=== PATIENT | female | born 1970 | race Caucasian/White ===

== ENCOUNTER → 2018-06-05 | Outpatient (CLI) | payer OTHER ==
--- NOTE | 2018-06-05 10:14 | KCIC ---
EXAM: MRI left shoulder DATE: 06/05/2018 8:00 AM COMPARISON: None INDICATION: Left shoulder pain. Decreased range of motion. TECHNIQUE: Multiplanar, multisequence MRI of the left shoulder was performed without contrast. FINDINGS: Mild AC joint degenerative changes are seen. Associated edema is likely degenerative. No evidence of fracture. Mild downsloping distal acromion. No os acromiale. Type I acromion. Subacromial subdeltoid bursal distention likely bursitis. No glenohumeral joint effusion. Mild thickening and increased signal within the supraspinatus tendon distally likely tendinosis. Shallow bursal sided tear of the distal supraspinatus tendon is seen involving approximately 10% tendon thickness. Thickening of the intra-articular long head biceps tendon likely severe tendinosis. Extra articular long head biceps tendon is seen within the bicipital groove. Evaluation of the labrum is limited on this nonarthrographic study. Mild diminutive appearance of the posterior labrum, possibly physiologic for this patient although may also be seen with tear. No definite full-thickness cartilage tear is identified. No evidence for fracture or AVN. IMPRESSION: 1. Shallow bursal sided tear within the supraspinatus tendon distally. 2. Severe tendinosis intra-articular long head biceps tendon. 3. Subacromial subdeltoid bursal distention likely bursitis. 4. Mild diminutive appearance of the posterior labrum, possibly physiologic for this patient although may also be seen with tear 5. AC joint degenerative changes with edema. Electronically signed by: Juanpablo Rosas MD (06/05/2018 10:09 AM) [facility]
== END | disposition home or self-care (01) ==
LOC: KCIC MRI 08:03
PROVIDERS: ATTEND Nurse Practitioner Adult Health
DX: M75.102 Unspecified rotator cuff tear or rupture of left shoulder, not specified as traumatic (principal); M19.012 Primary osteoarthritis, left shoulder; R60.0 Localized edema
CPT/HCPCS: 73221

== ENCOUNTER → 2018-08-10 | Day surgery (SDC) | payer OTHER ==
[~2018-08-10] VITALS: Ht 162.6 cm; Wt 104.3 kg
[~2018-08-10] MED LIST: ALPR0.25 PO; BUSP15TA PO; CLINDAMYCIN 900MG PREMIX 50 ML IV PRN; DEXAMETHASONE SOD PHOS 20 MG/5 ML VIAL. ONE; DIPH25CA58 PO; EPINEPHrine VIAL 30 MG/30 ML VIAL ONE; EPIPEN 2-P0.3 MG/0.3 IJ; FAMOTIDINE 20 MG/2 ML VIAL ONE; GABA-585 PO; GLYCOPYRROLATE 1 MG/5 ML VIAL. ONE; HYDROmorphone 2 MG/ML VIAL IV PRN; IV RINGERS,LACTATED 1000ML 1,000 ML IV SCH; LEXAPRO20 MG PO; LIDOCAINE 1% PF 2 ML VIAL. ID PRN; LIDOCAINE 2% PF 5 ML VIAL. ONE; LOSA1TAB19 PO; LOSA1TAB22 PO; MIDAZOLAM HCL/PF 2 MG/2 ML VIAL. ONE; MORPHINE SULFATE 2 MG/ML VIAL. IV PRN; NAPR-514 PO; NEOSTIGMINE METHYLSULFATE 5 MG/5 ML SYRINGE. ONE; ONDANSETRON PF 4 MG/2 ML VIAL. IV PRN; ONDANSETRON PF 4 MG/2 ML VIAL. ONE; OXYC1TAB19 PO; PROAIR RESPICL90 MCG IH; PROCHLORPERAZINE 10 MG/2 ML VIAL. IV PRN; PROPOFOL 20 ML IV ONE; PROTONIX PO; ROCURONIUM 50 MG/5 ML VIAL. ONE; ROPIVacaine 0.5% PF 20 ML VIAL. ONE; TRAM50TA PO; TRAZ-86 PO; fentaNYL PF VIAL 100 MCG/2 ML VIAL IV PRN; fentaNYL PF VIAL 100 MCG/2 ML VIAL ONE; oxyCODONE/APAP 7.5/325 1 TAB TABLET PO ONE
--- NOTE | 2018-08-10 06:58 | DISCH ---
DISCHARGE INSTRUCTIONS Condition on Discharge Condition on Discharge: Stable Activity After Discharge Activity Instructions for Disc: Other ROM activity ( sling for comfort may remove for active passive range of motion strengthening physical therapy and other activities), Other, see below (passive and active stretching advancing to strengthening as tolerated) Exercise Instruction after Dis: Exercise per therapy Weight Bearing Status after Di: Non weight bearing (fine motor use of hand at side only with home and work activities) Diet after Discharge Diet after Discharge: Regular Wound Incision Care Wound/Incision Care: Change dressing (remove dressing in 2 days may then shower , no soaking until sutures removed) Community/Resources/Services Services at Discharge: PT EVALUATE & TREAT (aggressive passive and active range of motion advancing the strengthening as tolerated no other restrictions) Contacting the after DC Call your doctor for: Concerns you may have Follow-Up Follow up with: Dr. Ko 10 days GOGO KO MD Aug 10, 2018 06:58
[2018-08-10] MEDS: fentaNYL PF VIAL 100 MCG/2 ML VIAL IV PRN ×3 (09:24→09:53)
--- NOTE | 2018-08-10 09:58 | PDOC4 ---
Operative Note Operative Note Date of surgery: 08/10/2018 Preoperative diagnosis: Rotator cuff tear possible superior labral tear, acromioclavicular joint pain post contusion Postoperative diagnosis: Rotator cuff had partial thickness bursal sided fraying superior labrum was intact she had some adhesive capsulitis and acromioclavicular joint degenerative change Surgeon: Maikel Assist: Demacrus Anesthesia: Gen. plus scalene block Estimated blood loss 10 mL Complications: None Operative indications: Alison is a 48-year-old female that injured her right shoulder at work and had pain and weakness MRI was suspicious for a rotator cuff tear as well as superior labral abnormality. She was also clinically very tender over the acromioclavicular joint I had gone over with her the possibility of rotator cuff repair appropriate treatment of the superior labral injury and likely decompression distal clavicle's excision. I went through risks benefits postoperative course of the procedure with her the typical recovery and restrictions and rationale all her questions were answered she wishes to proceed with surgical evaluation and treatment. Operative text: Patient was identified procedure verified patient placed in the supine position on the operating table. After adequate amounts of general anesthesia were administered the left upper extremity was prepped and draped in standard sterile fashion. Timeout was performed patient procedure identified and verified. The shoulder was first examined under anesthesia and found to have some limitation of terminal elevation as well as abduction and external rotation. This was restored with manipulation to full range of motion and no instability was noted. The arm was then placed in the arthroscopic arm gibbs with a total of 15 pounds of traction a posterior portal was established anterior portal established using spinal needle localization and the shoulder joint was systematically examined. She did have some bleeding from the capsular release with manipulation the superior labrum appeared intact biceps tendon was just irritated but found to be free from any subluxation or significant fraying. Rotator cuff insertion was intact to the joint surface labrum was intact with only mild fraying not requiring any debridement glenohumeral joint surfaces otherwise noted be intact and she had a normal bare area of the humerus. Subacromial space was then entered bursectomy was performed to allow visualization and she was noted to have significant bursal sided fraying which was debrided back to stable tissue but did not require repair. Coracoacromial ligament was taken down and anterior acromial spur was converted to a type I acromion using cutting block technique. The distal clavicle was noted to be narrowed and arthritic and was excised 1 cm to allow a joint space preserving the overlying joint capsule for stability. Bony fragments were evacuated with arthroscopic shaver and the rotator cuff insertion examined in all degrees of internal/external rotation and no repair necessary. Joint was drained of arthroscopic fluid portals closed with nylon suture sterile dressings were applied she was returned to recovery room in stable condition having tolerated procedure well. Demarcus kennedy was present for the procedure and assisted in the prepping draping skin closure GOGO ÁLVAREZ MD Aug 10, 2018 09:58
[2018-08-10 10:30] VITALS: BP 161/89
== END | disposition home or self-care (01) ==
LOC: SURG 05:49
PROVIDERS: ATTEND Orthopaedic Surgery
DX: S46.012A Strain of muscle(s) and tendon(s) of the rotator cuff of left shoulder, initial encounter (principal); M75.02 Adhesive capsulitis of left shoulder; M19.012 Primary osteoarthritis, left shoulder; Z82.49 Family history of ischemic heart disease and other diseases of the circulatory system; Z79.899 Other long term (current) drug therapy; Z88.0 Allergy status to penicillin; Z88.2 Allergy status to sulfonamides; Z88.1 Allergy status to other antibiotic agents; Z88.8 Allergy status to other drugs, medicaments and biological substances; Z91.041 Radiographic dye allergy status; Z91.040 Latex allergy status; X58.XXXA Exposure to other specified factors, initial encounter; Y93.89 Activity, other specified; Y92.89 Other specified places as the place of occurrence of the external cause; Y99.8 Other external cause status
CPT/HCPCS: 29823; 29824; A7015; J0171; J1100; J2001; J2250; J2405; J2704; J2710; J2795; J3010; J3490; J7120

== ENCOUNTER 2018-10-09 07:45 | Day surgery (SDC) | payer OTHER ==
[~2018-10-09 07:45] MED LIST changes: -CLINDAMYCIN 900MG PREMIX 50 ML IV PRN; -DEXAMETHASONE SOD PHOS 20 MG/5 ML VIAL. ONE; -EPINEPHrine VIAL 30 MG/30 ML VIAL ONE; -FAMOTIDINE 20 MG/2 ML VIAL ONE; -GLYCOPYRROLATE 1 MG/5 ML VIAL. ONE; -LIDOCAINE 2% PF 5 ML VIAL. ONE; -MIDAZOLAM HCL/PF 2 MG/2 ML VIAL. ONE; -MORPHINE SULFATE 2 MG/ML VIAL. IV PRN; -NEOSTIGMINE METHYLSULFATE 5 MG/5 ML SYRINGE. ONE; -ONDANSETRON PF 4 MG/2 ML VIAL. ONE; -PROPOFOL 20 ML IV ONE; -ROCURONIUM 50 MG/5 ML VIAL. ONE; -ROPIVacaine 0.5% PF 20 ML VIAL. ONE; -fentaNYL PF VIAL 100 MCG/2 ML VIAL ONE; -oxyCODONE/APAP 7.5/325 1 TAB TABLET PO ONE
[2018-10-09] MEDS ORDERED: PROPOFOL 20 ML IV ONE (08:33)
[2018-10-09] MEDS ORDERED: ROPIVacaine 0.5% PF 20 ML VIAL. ONE ×2 (08:50→09:00)
[2018-10-09] MEDS ORDERED: MIDAZOLAM HCL/PF 2 MG/2 ML VIAL. ONE ×2 (08:50→09:00)
[2018-10-09] MEDS ORDERED: BUPIVACAINE MPF 0.5% 30 ML VIAL. ONE ×2 (09:00→09:48)
[2018-10-09] MEDS ORDERED: methylPREDNISolone ACETATE 80 MG/ML VIAL. ONE ×2 (09:00→09:47)
[2018-10-09] MEDS ORDERED: PROPOFOL 10 MG/ML (20ML) VIAL. IV ONE ×2 (09:00→12:00)
--- NOTE | 2018-10-09 11:01 | DISCH ---
DISCHARGE INSTRUCTIONS Condition on Discharge Condition on Discharge: Stable Activity After Discharge Activity Instructions for Disc: No restrictions (no sling or limitations wh atsoever), Other, see below (mediate aggressive range of motion with physical therapy) Diet after Discharge Diet after Discharge: Regular Wound Incision Care Wound/Incision Care: Ice to area for comfort Community/Resources/Services Services at Discharge: PT EVALUATE & TREAT (start physical therapy as soon as possible no later than tomorrow) GOGO ÁLVAREZ MD Oct 09, 2018 11:01
--- NOTE | 2018-10-09 11:06 | PDOC4 ---
Operative Note Operative Note Date of surgery: 10/09/2018 Preoperative diagnosis: Adhesive capsulitis left shoulder Postoperative diagnosis: Same Operative procedure: Manipulation left shoulder under anesthesia and injection glenohumeral joint Surgeon: Maikel Anesthesia with deep sedation Complications: None Operative indications: Patient underwent previous shoulder surgery and has been regressing in her range of motion despite attempts of physical therapy and home stretching program strength is getting better but motion is decreasing as is her pain. We had discussed adhesive capsulitis and the natural course of that entity as well as the possibility of it running its course, the ineffectiveness of current stretching and physical therapy regimen and the possibility of manipulation under anesthesia. She wishes to proceed with manipulation and inje ction and understands that she needs to get back into physical therapy right away to keep the motion that has already been regained. Operative text: Patient was identified procedure verified patient placed in the supine position on the operating table. After adequate amounts of deep sedation provided by anesthesia the shoulder was examined under anesthesia and found to lack terminal elevation and external rotation and abduction of about 65 each, internal rotation was lacking about 20. After manipulation palpable and audible release of tissue was noted and full range of motion was regained without instability and under sterile conditions 3 mL of half percent plain Marcaine and 1 mL 80 mg/mm Depo-Medrol were injected into the glenohumeral joint from an ante rior approach. She was recovered in stable condition and instructed in immediate physical therapy with aggressive range of motion and no restrictions whatsoever GOGO ÁLVAREZ MD Oct 09, 2018 11:06
[2018-10-09] MEDS ORDERED: fentaNYL PF VIAL 100 MCG/2 ML VIAL ONE (11:07)
[2018-10-09] MEDS: fentaNYL PF VIAL 100 MCG/2 ML VIAL IV PRN ×2 (11:11→11:23)
[2018-10-09] MEDS ORDERED: MORPHINE SULFATE 2 MG/ML VIAL. ONE (11:41)
[2018-10-09] MEDS: MORPHINE SULFATE 2 MG/ML VIAL. IV PRN ×2 (11:45→11:56)
[2018-10-09] MEDS ORDERED: oxyCODONE/APAP 7.5/325 1 TAB TABLET PO ONE (12:00)
[2018-10-09] MEDS ORDERED: oxyCODONE/APAP 7.5/325 1 TAB TABLET ONE (12:03)
[2018-10-09 12:10] VITALS: BP 114/64
[2018-10-09] MEDS ORDERED: HYDROmorphone 2 MG/ML VIAL ONE (12:24)
== END 2018-10-09 12:42 | disposition home or self-care (01) ==
LOC: SURG 07:45
PROVIDERS: ATTEND Orthopaedic Surgery
DX: M75.02 Adhesive capsulitis of left shoulder (principal); Z98.890 Other specified postprocedural states; Z88.0 Allergy status to penicillin; Z88.8 Allergy status to other drugs, medicaments and biological substances; Z88.1 Allergy status to other antibiotic agents; Z91.041 Radiographic dye allergy status; Z91.040 Latex allergy status
CPT/HCPCS: 20610; 23700; J1040; J1170; J2250; J2270; J2704; J2795; J3010; J3490

== ENCOUNTER → 2020-09-15 | Outpatient (CLI) | payer OTHER ==
[~2020-09-15] MED LIST changes: +FLUO40CA2 PO; +FLUT9.9S NS; +HYDR-2765 PO; +HYDR50TA9 PO; -HYDROmorphone 2 MG/ML VIAL IV PRN; -IV RINGERS,LACTATED 1000ML 1,000 ML IV SCH; +LEVO50TA5 PO; -LIDOCAINE 1% PF 2 ML VIAL. ID PRN; +LOSA100T14 PO; -ONDANSETRON PF 4 MG/2 ML VIAL. IV PRN; -PROCHLORPERAZINE 10 MG/2 ML VIAL. IV PRN; +SOLI10TA2 PO; +TRAZ-123 PO; -TRAZ-86 PO; -fentaNYL PF VIAL 100 MCG/2 ML VIAL IV PRN
== END ==
LOC: LAB 10:20
PROVIDERS: ATTEND Orthopaedic Surgery
DX: Z01.812 Encounter for preprocedural laboratory examination (principal); Z20.822 Contact with and (suspected) exposure to COVID-19
CPT/HCPCS: U0003; U0005

== ENCOUNTER 2020-09-18 12:13 | Day surgery (SDC) | payer OTHER ==
[~2020-09-18] VITALS: Ht 162.6 cm; Wt 103.0 kg
[~2020-09-18 12:13] MED LIST changes: +CEFAZOLIN SODIUM IV ONE; +DEXTROSE 5% IV ONE; -HYDR-2765 PO; +HYDROmorphone 2 MG/ML VIAL IVP PRN; +IV RINGERS,LACTATED 1000ML 1,000 ML IV SCH; +fentaNYL PF VIAL 100 MCG/2 ML VIAL IVP PRN
[2020-09-18 12:33] VITALS: BP 150/67
[2020-09-18] MEDS ORDERED: ONDANSETRON PF 4 MG/2 ML VIAL. ONE (16:14)
[2020-09-18] MEDS ORDERED: LIDOCAINE 2% PF 5 ML VIAL. ONE (16:14)
[2020-09-18] MEDS ORDERED: PROPOFOL 10 MG/ML (20ML) VIAL. IV ONE ×2 (16:14→17:10)
[2020-09-18] MEDS ORDERED: DEXAMETHASONE SOD PHOS 4 MG/ML VIAL ONE (16:14)
[2020-09-18] MEDS ORDERED: fentaNYL PF VIAL 100 MCG/2 ML VIAL ONE ×2 (16:39→17:03)
[2020-09-18] MEDS ORDERED: HYDR-2765 PO (16:47)
--- NOTE | 2020-09-18 16:47 | DISCH ---
DISCHARGE INSTRUCTIONS Condition on Discharge Condition on Discharge: Stable Activity After Discharge Activity Instructions for Disc: Progressive ambulation Diet after Discharge Diet after Discharge: Regular Wound Incision Care Wound/Incision Care: Ice to area for comfort, Change dressing (Remove dressing in 2 days may then shower no soaking until sutures removed) Contacting the DRJennifer after DC Call your doctor for: Concerns you may have Follow-Up Follow up with: Dr. Ko or [place] 10 days GOGO KO MD September 18, 2020 16:47
[2020-09-18] MEDS ORDERED: BUPIVACAINE-EPI 0.5%-1:200000 MPF 30 ML VIAL. ONE (17:11)
[2020-09-18] MEDS ORDERED: SEVOFLURANE 31 TO 60 MINUTES. IH ONE (17:14)
--- NOTE | 2020-09-18 17:34 | PDOC4 ---
Operative Note Operative Note Date of surgery: 09/18/2020 Preoperative diagnosis: Left knee medial and lateral meniscus tears Postoperative diagnosis: Same Operative procedure: Left knee arthroscopy partial medial and lateral meniscectomy Surgeon: Maikel Assist: Martin kennedy Anesthesia: General Estimated blood loss: 5 cc Complications: None Operative indications: Please see my preoperative clinic note for detailed operative indications and note that we reviewed preoperatively the rationale for removal of the damaged portions of the meniscus which is unstable causing her mechanical symptoms. I went over that I cannot undo any degenerative type symptoms and those would have to be treated symptomatically in an ongoing fashion. We talked about the possibility of infection nerve or blood vessel damage continued pain medical or other anesthetic complications among others and she agrees to proceed with surgical evaluation and treatment. Operative text: Patient was identified procedure verified patient placed in supine position on the operating table. After adequate amounts of general anesthesia were administered the left lower extremity was prepped and draped in standard sterile fashion with a thigh tourniquet. After timeout was performed patient procedure identified and verified the left lower extremity was exsanguinated by Esmarch bandage tourniquet inflated to 350 mmHg a lateral portal was established medial portal established using spinal needle localizati on and the knee joint was systematically examined. She was found to have a large displaceable parrot-beak tear of the medial meniscus involving the junction of the body and posterior horn. She had additional fraying and instability of the posterior horn extending toward the root all of which was trimmed back to stable tissue and radius appropriately using the opposite portal to avoid ongoing stress concentration. ACL was probed and found to be intact as was the patellofemoral articulation. Lateral meniscus had a radial tear in the body area and significant free edge fraying all of which was trimmed back to stable tissue with the arthroscopic punch and shaver involving approximately the inner 30% of the lateral meniscus and approximately 60% of the medial meniscus tissue at its most severe at the base of the previous parrot-beak tear area. Any loose cartilage fragments were collected with the arthroscopic shaver. Joint was drained of arthroscopic fluid portals and fat pad area were injected with half percent Marcaine with epinephrine portals closed with nylon suture sterile dressings were applied toes were noted to be warm pink following deflation of tourniquet patient was returned to recovery room in stable condition having tolerated procedure well. Martin kennedy was present for the procedure assisted in patient positioning prepping draping retraction closure and dressings GOGO ÁLVAREZ MD September 18, 2020 17:34
[2020-09-18] MEDS ORDERED: PROCHLORPERAZINE 10 MG/2 ML VIAL. ONE (17:56)
[2020-09-18] MEDS ORDERED: MORPHINE SULFATE 2 MG/ML VIAL. ONE (17:57)
[2020-09-18] MEDS: PROCHLORPERAZINE 10 MG/2 ML VIAL. IVP PRN ×2 (18:02→18:11)
[2020-09-18] MEDS: MORPHINE SULFATE 2 MG/ML VIAL. IVP PRN ×2 (18:03→18:13)
[2020-09-18] MEDS ORDERED: HYDROcodone/APAP 7.5/325MG 1 TAB TABLET PO ONE (18:30)
[2020-09-18 18:56] VITALS: BP 152/70
== END 2020-09-18 19:20 | disposition home or self-care (01) ==
LOC: SURG 12:13
PROVIDERS: ATTEND Orthopaedic Surgery
DX: S83.242A Other tear of medial meniscus, current injury, left knee, initial encounter (principal); S83.282A Other tear of lateral meniscus, current injury, left knee, initial encounter; I10 Essential (primary) hypertension; E78.00 Pure hypercholesterolemia, unspecified; M19.90 Unspecified osteoarthritis, unspecified site; J45.909 Unspecified asthma, uncomplicated; E66.9 Obesity, unspecified; K21.9 Gastro-esophageal reflux disease without esophagitis; G47.30 Sleep apnea, unspecified; E03.9 Hypothyroidism, unspecified; F41.9 Anxiety disorder, unspecified; F32.9 Major depressive disorder, single episode, unspecified; Z87.440 Personal history of urinary (tract) infections; Z90.710 Acquired absence of both cervix and uterus; Z98.890 Other specified postprocedural states; Z79.899 Other long term (current) drug therapy; Z88.0 Allergy status to penicillin; Z88.1 Allergy status to other antibiotic agents; Z88.2 Allergy status to sulfonamides; Z88.5 Allergy status to narcotic agent; Z91.040 Latex allergy status; Z91.041 Radiographic dye allergy status; Z88.8 Allergy status to other drugs, medicaments and biological substances; X58.XXXA Exposure to other specified factors, initial encounter; Y93.89 Activity, other specified; Y92.89 Other specified places as the place of occurrence of the external cause; Y99.8 Other external cause status
CPT/HCPCS: 29880; A4930; J0690; J0780; J1100; J2270; J2405; J2704; J3010; J7060

== ENCOUNTER 2020-11-05 10:07 | Day surgery (SDC) | payer OTHER ==
[~2020-11-05] VITALS: Ht 162.6 cm; Wt 100.0 kg
[~2020-11-05 10:07] MED LIST changes: +ALPR0.254 PO; -CEFAZOLIN SODIUM IV ONE; -DEXTROSE 5% IV ONE; +HYDR-2765 PO; -HYDROmorphone 2 MG/ML VIAL IVP PRN; +PANT40TA77 PO; +PROCHLORPERAZINE 10 MG/2 ML VIAL. IVP PRN; +TRIA10.8 NS
[2020-11-05 10:37] VITALS: BP 128/69
[2020-11-05] MEDS ORDERED: LIDOCAINE 1% Multi-Dose 20 ML VIAL. ONE (10:38)
[2020-11-05] MEDS ORDERED: POVIDONE-IODINE 10% TOPICAL OINTMENT 28GM TUBE. TP ONE (10:39)
[2020-11-05] MEDS ORDERED: BUPIVACAINE MPF 0.5% 30 ML VIAL. ONE (10:39)
[2020-11-05] MEDS ORDERED: PROPOFOL 10 MG/ML (20ML) VIAL. IV ONE ×2 (10:43→12:39)
[2020-11-05] MEDS ORDERED: LIDOCAINE 2% PF 5 ML VIAL. ONE (10:43)
[2020-11-05] MEDS ORDERED: FAMOTIDINE 20 MG/2 ML VIAL ONE (10:44)
[2020-11-05] MEDS ORDERED: DEXAMETHASONE SOD PHOS 4 MG/ML VIAL ONE ×2 (10:44→12:54)
[2020-11-05] MEDS ORDERED: ONDANSETRON PF 4 MG/2 ML VIAL. ONE (10:45)
--- NOTE | 2020-11-05 10:45 | SSS ---
ADMIT DATE: 11/05/2020 CHIEF COMPLAINT: Right foot ganglion cyst, request for preoperative evaluation. HISTORY OF PRESENT ILLNESS: The patient is a pleasant 50-year-old female who appears younger than her stated age. She is a [employer]. Basically, she has got a right foot ganglion cyst on the dorsal aspect. It was partially removed by her primary care doctor, but now it has somewhat returned. She has got some scar tissue that is causing pain. She is going to the OR today with Dr. Christianson to have it excised. We have been requested for preoperative evaluation. PAST MEDICAL HISTORY: x 4, tonsillectomy and adenoidectomy, left knee surgery, lupus, hysterectomy, left rotator cuff, shoulder fracture, C3 and C4 fusion, uterine cancer, cervical cancer, skin cancer and melanoma and right lumpectomy. ALLERGIES: PENICILLIN, SULFA, LATEX, BIAXIN, NSAIDS AND LEVAQUIN. FAMILY HISTORY: Noncontributory. SOCIAL HISTORY: She is a [employer]ANT. She does not drink, smoke or take drugs. She is , has 4 children. MEDICATIONS: Medications were reviewed. Please refer to the [facility]. REVIEW OF SYSTEMS: GENERAL: No history of weight change, weakness or fevers. SKIN: No bruising, hair changes or rashes. EYES: No blurred, double or loss of vision. NOSE AND THROAT: No history of nosebleeds, hoarseness or sore throat. HEART: No history of palpitations, chest pain or shortness of breath on exertion. LUNGS: Denies cough, hemoptysis, wheezing or shortness of breath. GASTROINTESTINAL: Denies changes in appetite, nausea, vomiting, diarrhea or constipation. GENITOURINARY: No history of frequency, urgency, hesitancy or nocturia. NEUROLOGIC: Denies history of numbness, tingling, tremor or weakness. PSYCHIATRIC: No history of panic, anxiety or depression. ENDOCRINE: No history of heat or cold intolerance, polyuria or polydipsia. EXTREMITIES: She complains of right foot pain. PHYSICAL EXAMINATION: VITALS: Within normal limits and are stable. GENERAL: No apparent distress. Alert and oriented. HEENT: Normal cephalic atraumatic, external auditory canals are patent. EYES: Extraocular muscles are intact, pupils are equally round and reactive to light and accommodation. MUSCULOSKELETAL: Well developed, well nourished, good range of motion ENDOCRINE: No thyromegaly was palpated. LYMPHATICS: No cervical chain or axillary nodes were noted. HEMATOPOIETIC: No bruising. NECK: Supple, no JVD, no thyromegaly was noted. LUNGS: Clear to auscultation in all lung kelly without rhonchi or wheezing. HEART: RRR, S1, S2 present. Peripheral pulses intact, no obvious murmurs were noted. ABDOMEN: Soft, nontender. Positive bowel sounds no organomegaly, normal bowel sounds. EXTREMITIES: Without any cyanosis, clubbing, or edema. Pedal pulses intact, Homans sign is negative. NEUROLOGIC: Normal speech, normal tone. A and O x 3, moves all extremities, no obvious focal deficits. PSYCHIATRIC: Normal affect, normal mood. Stable. SKIN: She does have a ganglion cyst on her right foot that appears to have been excised. There is some residual scar tissue. VASCULAR: Good capillary refill, neurovascular bundle appears to be intact. ASSESSMENT AND PLAN: Right foot ganglion cyst. The patient is cleared for surgery. I suspect she is at low risk for intraoperative or postoperative complications. If for some reason, she is to be admitted after surgery, I will be available. Thank you very much for allowing us to participate in the care of this nice lady. After discharge, we will have her see her doctor in a week and continue her home medicines and p.r.n. pain meds. ARON DR: Jeannette TID: [id number]
[2020-11-05] MEDS ORDERED: fentaNYL PF VIAL 100 MCG/2 ML VIAL ONE ×2 (10:46→13:13)
[2020-11-05] MEDS ORDERED: SCOPOLAMINE 1.5MG PATCH. TD ONE (12:02)
[2020-11-05] MEDS ORDERED: SEVOFLURANE 61 TO 120 MINUTES. IH ONE (12:50)
[2020-11-05] MEDS ORDERED: ePHEDrine PF IN SALINE 50 MG/10 ML SYRINGE. IV ONE (12:50)
[2020-11-05] MEDS: fentaNYL PF VIAL 100 MCG/2 ML VIAL IVP PRN ×2 (13:17→13:22)
--- NOTE | 2020-11-05 13:26 | PDOC4 ---
OPERATIVE NOTE: Surgeon: Sammy Pre op DX: benign soft tissue mass right foot post op DX: same Procedure: excision of benign soft tissue mass right foot Anesthesia: MAC with local Hemostasis: right ankle tourniquet at 250mmHg x 24 minutes EBL 1mL Pathology: soft tissue mass right foot Patient tolerated anesthesia and procedure well transferred to PACU with VSS and VSI to right foot JEAN CARLOS RUTLEDGE DPM Nov 05, 2020 13:26
[2020-11-05] MEDS ORDERED: MORPHINE SULFATE 2 MG/ML INJ. ONE (13:27)
[2020-11-05] MEDS: MORPHINE SULFATE 2 MG/ML INJ. IVP PRN ×2 (13:28→13:38)
[2020-11-05] MEDS ORDERED: HYDR-2759 PO ×2 (13:32→14:44)
--- NOTE | 2020-11-05 13:38 | OP ---
DATE OF SURGERY: 11/05/2020 CHIEF COMPLAINT: Soft tissue mass to the right foot. HISTORY OF PRESENT ILLNESS: The patient is a 50-year-old female who complained of a palpable soft tissue mass to the dorsal midfoot aspect of her right foot. She had had previous attempt of excision in the office with her nurse practitioner and no mass was obtained or liquid and she continued to have pain to the area in shoegear and weightbearing. Thus, she says she was seen in the office and scheduled for surgical excision. Discussed with the patient the possible risks, benefits and complications to include delayed or nonhealing, need for further surgery, recurrence, numbness, tingling, burning, chronic pain, swelling, delayed or nonhealing, seroma or hematoma, need for further surgery, DVT or pulmonary embolism, loss of foot, limb or life. All questions were answered. The patient understands and agrees with the above said procedure. No guarantees made. DESCRIPTION OF PROCEDURE: The patient was transported to the operating room via cart and placed on the operating room table in supine position. Final verification of the surgery, the patient's limb was performed. She was given IV sedation per anesthesia and the well-padded tourniquet was placed over the right ankle and an infiltrative block was given to the right foot consisting of a 1:1 mixture of 1% lidocaine plain and 0.25% Marcaine plain, 7 mL total. The right foot was then prepped and draped in the usual aseptic manner. Esmarch bandage was used to exsanguinate the right foot and the right ankle tourniquet was inflated to 250 mmHg. Attention was directed to the dorsal midfoot at the site of the soft tissue mass and 2 converging semielliptical incisions were made to excise the skin and the mass underneath that. This was noted to be adhered to the superficial dorsal cutaneous nerve. This was safely released. Small vessels were cauterized and there was no fluid filled mass, but there was a firm nodule, which was excised attached to the skin. There was no deep probing or sinus tracts to the deeper fascia and the wound culture was then taken. This mass was sent to pathology and the wound was copiously irrigated with sterile saline and the skin was reapproximated with 3-0 Vicryl and 4-0 nylon. A postop injection was given with 0.5 of dexamethasone. The wound was dressed with Betadine ointment, Adaptic gauze, 4 x 4s, Kerlix and an Chidi bandage and the tourniquet was deflated after 24 minutes. Good perfusion was noted to all digits of the right foot. The patient tolerated both anesthesia and procedure well and was transported to the PACU with vital signs stable and vascular status intact to the right foot. Postop instructions are in the chart. LAWRENCE DR: Joshua TID: [id number]
[2020-11-05] MEDS ORDERED: HYDROmorphone 2 MG/ML VIAL ONE (13:45)
[2020-11-05] MEDS: HYDROmorphone 2 MG/ML VIAL IVP PRN ×2 (13:49→13:59)
[2020-11-05] MEDS ORDERED: HYDROcodone/APAP 5/325MG 1 TAB TABLET PO ONE ×2 (14:00)
[2020-11-05 14:07] VITALS: BP 138/56
== END 2020-11-05 14:46 | disposition home or self-care (01) ==
LOC: SURG 10:07
PROVIDERS: ATTEND Podiatrist Foot & Ankle Surgery
DX: M67.471 Ganglion, right ankle and foot (principal); D23.71 Other benign neoplasm of skin of right lower limb, including hip; E66.9 Obesity, unspecified; G47.30 Sleep apnea, unspecified; J45.909 Unspecified asthma, uncomplicated; I10 Essential (primary) hypertension; K21.9 Gastro-esophageal reflux disease without esophagitis; E03.9 Hypothyroidism, unspecified; F41.9 Anxiety disorder, unspecified; F32.9 Major depressive disorder, single episode, unspecified; Z85.3 Personal history of malignant neoplasm of breast; Z90.710 Acquired absence of both cervix and uterus; Z98.890 Other specified postprocedural states; Z79.899 Other long term (current) drug therapy; Z88.0 Allergy status to penicillin; Z88.1 Allergy status to other antibiotic agents; Z88.2 Allergy status to sulfonamides; Z88.8 Allergy status to other drugs, medicaments and biological substances
CPT/HCPCS: 28090; 87071; 87075; 88305; 88341; 88342; A4930; A6223; A6402; J1100; J1170; J2270; J2405; J2704; J3010; J3490; A4657; A6452